=== PATIENT | male | born 1990 | race Caucasian/White ===

== ENCOUNTER 2021-04-16 11:31 | Emergency (ER) | payer SELFPAY ==
[~2021-04-16] VITALS: Ht 165.1 cm; Wt 77.0 kg
[2021-04-16 11:45] VITALS: BP 118/66
[2021-04-16] MEDS ORDERED: AMOXICILLIN/POTASSIUM CLAVULANATE 875/125MG TAB PO ONE (13:30)
[2021-04-16] MEDS ORDERED: IBUPROFEN 600MG TABLET PO ONE (13:30)
[2021-04-16] MEDS ORDERED: IBUP-2029 MT (13:37)
[2021-04-16] MEDS ORDERED: ACET-2708 MT (13:37)
[2021-04-16] MEDS ORDERED: AMOX-424 MT (13:37)
== END 2021-04-16 14:05 | disposition home or self-care (01) ==
LOC: ER 11:31
DX: S80.02XA Contusion of left knee, initial encounter (principal); W54.0XXA Bitten by dog, initial encounter; Y93.89 Activity, other specified; Y92.89 Other specified places as the place of occurrence of the external cause; Y99.8 Other external cause status
CPT/HCPCS: 99283; Z7610